=== PATIENT | female | born 1940 | race Caucasian/White ===

== ENCOUNTER 2024-10-11 14:35 | Observation (INO) | payer MEDICARE, BC, SELFPAY ==
[2024-10-11] VITALS (22 sets, daily range): BP systolic 120–153; BP diastolic 73–97; PULSE 65–93; RESP 10–26; TEMP 36.4–36.9; O2SAT 92–96; BMI 26.7; BMI 26.4; BMI 26.5
--- OUTSIDE RECORDS SUMMARY | 2024-10-11 14:51 | XMS_ITS | Clinical Summary ---
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 Provider zinc 50 mg tablet Take 1 Tablet (50 mg) by mouth once daily. zinc 50 mg tablet QIEUSER QIEUSER WARFARIN SODIUM 7.5 MG TABS Take by mouth 7.5 mg (7.5 mg x 1) every Mon, Fri; 3.75 mg (7.5 mg x 0.5) all other days in the evening OR as directed warfarin [id number] QIEUSER QIEUSER ROSUVASTATIN CALCIUM 20 MG TABS Take 1 Tablet (20 mg) by mouth at bedtime. rosuvastatin [id number] QIEUSER QIEUSER NORTRIPTYLINE HCL 10 MG CAPS Take 1 Capsule (10 mg) by mouth at bedtime. nortriptyline [id number] QIEUSER QIEUSER NITROGLYCERIN 0.[address] 1 Tablet (0.4 mg) under the tongue every 5 minutes if needed for Chest Pain. nitroglycerin [id number] QIEUSER QIEUSER [facility] [place] As directed. Automatic arm blood pressure cuff, diagnosis hypertension I[facility] [place] QIEUSER QIEUSER METOPROLOL SUCCINATE ER 50 MG [id number] Take 1 Tablet (50 mg) by mouth at bedtime. metoprolol succinate [id number] QIEUSER QIEUSER LORAZEPAM 0.5 MG TABS TAKE 1/2 TO 1 TABLET BY MOUTH NEEDED, NOT MEANT FOR REGULAR USE. lorazepam [id number] QIEUSER QIEUSER L.acid-L.casei-B.b if-B.violet-FOS (Probiotic Blend) 2 billion c Take by mouth. Probiotic Blend QIEUSER QIEUSER ESTRADIOL 0.1 MG/GM CREA Insert 1 g into the vagina once weekly. estradiol [id number] QIEUSER QIEUSER denosumab (PROLIA) injection 60 mg 60 mg Subcutaneous 11/07 PROLIA QIEUSER QIEUSER cholecalciferol (VITAMIN D3) 2,000 unit capsule Take 1 Capsule (2,000 units) by mouth once daily. VITAMIN D3 QIEUSER QIEUSER CALCIUM CARB-CHOLECALCIFER OL (CALCIUM CARB-CHOLECALCIFER OL) 600-10 MG-MCG TABS Take 1 Tablet by mouth in the morning and 1 Tablet in the evening. Take with meals. CALCIUM CARB-CHOLECALCI FEROL QIEUSER QIEUSER ASPIRIN LOW DOSE 81 MG TBEC Once daily aspirin [id number] QIEUSER QIEUSER ASCORBIC ACID 500 MG TABS Take 1 Tablet (500 mg) by mouth once daily. ascorbic acid (vitamin c) [id number] QIEUSER QIEUSER acetaminophen (TYLENOL) 500 mg capsule Take 1 capsule by mouth every 6 hours if needed. Max acetaminophen dose: 4000mg in 24 hrs. TYLENOL QIEUSER QIEUSER Medications Administered No information available. Allergies, Adverse Reactions, Alerts No information available. Results Date Name Value Unit Range Flag Description Office Visit: Office Visit f ax MEDS REVIEW Done Documenta tion of current medications (procedure) Plan of Care Type Date Detail Appointment 11:00 [place], [address] [place] [address] [employer], [address], [place], [address], Appointment 03:30 PM Aubree workman PA-C, Formerly named [facility], [address], [place], [address], Pending order Follow up ARYAN Pending order Follow up ARYAN Pending order MRI-Brain W/WO Pending order MRI-Brain W/WO Procedures Code Procedure Name Date Entry Date [id number] Documentation of current medicatio ns Vital Signs Date Name Value Unit Description Heart Rate 62 /min pulse rate Immunizations No information available. Advance Directives No information available.
--- OUTSIDE RECORDS SUMMARY | 2024-10-11 14:51 | XMS_ITS | Clinical Summary ---
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 Max acetaminophen dose: 4000mg in 24 hrs. 0 02/28/20 19 Active miscellaneous medical supply miscIndications:H TN (hypertension) As directed. Automatic arm blood pressure cuff, diagnosis hypertension I10 1 Units 12/11/19 20 Active zinc 50 mg tablet Take 1 Tablet (50 mg) by mouth once daily. 0 01/03/20 21 Active ascorbic acid, vitamin C, (Vitamin C) 500 mg tablet Take 1 Tablet (500 mg) by mouth once daily. 0 01/03/20 21 Active L.acid-L.casei-B. bif-B.violet-FOS (Probiotic Blend) 2 billion cell-50 mg cap Take by mouth. 0 01/03/20 21 Active cholecalciferol (VITAMIN D3) 2,000 unit capsuleIndication s:Vitamin D deficiency,Age related osteoporosis, unspecified pathological fracture presence Take 1 Capsule (2,000 units) by mouth once daily. 09/18/19 22 Active calcium carbonate-vitamin D3, 600 mg-400 unit, 600 mg-10 mcg (400 unit) tabletIndications :Vitamin D deficiency,Age related osteoporosis, unspecified pathological fracture presence Take 1 Tablet by mouth in the morning and 1 Tablet in the evening. Take with meals. 0 09/18/19 22 Active nitroglycerin (NITROSTAT) 0.4 mg sublingual tabletIndications :Coronary artery disease involving coronary bypass graft of [place] heart with angina pectoris Place 1 Tablet (0.4 mg) under the tongue every 5 minutes if needed for Chest Pain. 25 Tablet 6 08/09/19 24 Active LORazepam (ATIVAN) 0.5 mg tabIndications:An xiety TAKE 1/2 TO 1 TABLET BY MOUTH NEEDED, NOT MEANT FOR REGULAR USE. 15 Tablet 2 10/25/19 24 Active rosuvastatin (CRESTOR) 20 mg tabletIndications :Hyperlipidemia, unspecified hyperlipidemia type Take 1 Tablet (20 mg) by mouth at bedtime. 90 Tablet 3 05/01/19 25 Active metoprolol succinate (TOPROL XL) 50 mg sustained-release tabletIndications :Screening for hypertension,Prim grace hypertension Take 1 Tablet (50 mg) by mouth at bedtime. 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 90 Tablet 3 10/02/19 25 Active estradioL (ESTRACE) 0.01% (0.1 mg/g) vaginal creamIndications: Atrophic vaginitis Insert 1 g into the vagina every Tuesday and Tuesday. 42.5 g 10/06/19 25 Active estradioL (ESTRACE) 0.01% (0.1 mg/g) vaginal creamIndications: Atrophic vaginitis Insert 1 g into the vagina once weekly. 42.5 g 5 05/01/19 25 025 Discontin ued(*Medi cation adjustmen t) mirtazapine 7.5 mg tabletIndications :Anxiety Take 0.5 Tablets (3.75 mg) by mouth at bedtime. 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 subendocardial scar compromising 50 to 75% of the myocardial wall thickness in the apical anterior, septal, and apical inferior segments, as well as the true apex (with total scar burden of 12%), yet her overall left ventricular ejection fraction was preserved at 64% Gilbert's syndrome 12/28/2011 Overview (12/28/2011): Bilirubin usually 1.6-1.7 Uterine prolapse 10/27/2011 Colon polyp 05/04/2011 Overview (05/04/2011): Colonoscopy 04/2011 polyp repeat in 5 years Vitamin D deficiency 02/03/2009 Cystocele, midline 01/30/2008 HTN (hypertension) 01/18/2007 Unspecified osteoporosis 01/18/2007 Overview (09/15/2017): Borderline osteoporosis, 2008, stable to improved 02/2011. Started fosamax 2012. Osteoporosis stable 08/2017, recheck 3 years. ASCVD (arteriosclerotic cardiovascular disease) 01/18/2007 Overview (06/09/2016): Acute KY and 4v coronary artery bypass graft surgery in 1998. She underwent percutaneous coronary intervention to the left anterior descending coronary artery due to chest pain while traveling in [place], [place] in 2003. Her last angiogram was in 01/2012 for evaluation of chest pain. At that time her KIMBLE to the LAD was noted to be atretic and her 3 vein grafts were occluded. Resolved Problems Problem Noted Date Diagnosed Date Resolved Date Ascending aorta dilatation 08/01/2018 0 04/22/2023 Overview (10/08/2018): 4cm on echocardiogram 07/2018. Recheck 6-12 months initially then annually if stable. May space out further if remains stable per cardiology. 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 Unstable angina 02/09/2012 02/26/2014 Paresthesia 02/16/2010 05/28/2014 Encounters Date Type Department Care Team Description 10/11/2024 Nurse Triage [facility] [address] [place] [address] Lucero Murphy MD Confusion 10/04/2024 2:40 PM CDT Office Visit [facility] [address] [place] [phone] Enedina Arcos MD Consult (Postmenopausal bleeding/follow up ultrasound) 10/04/2024 Travel 09/26/2024 Anticoagulation (warfarin) [facility] [address] [place] [address] Nurse, [facility] Anticogwendolyn Anticoagulation 09/25/2024 Travel 09/12/2024 Anticoagulation (warfarin) [facility] [address] [facility] [address] Nurse, [facility] Anticoag Anticoagulation 09/11/2024 11:20 AM CDT Office Visit [facility] [address] [facility] [address] Lucero Murphy MD Follow Up (Pessary reinserted 08/23/24. St[address] in [address]. No bleeding/Fall on 08/27/24, no broken bones. Bruising has faded.); ER Follow up (09/08/24 Seen for mild pressure and lasted only a fleeting second or 2 before resolving./EKG done. Discharged home. Has not had any episodes since./Spots on x-ray. Jacqueline does have sensation around left nipple.); Pre-Op Exam (Cataract surgery 09/17 and 09/[address] [place] [address] [place] Olmos); Medication Management (Mirtazapine dose? Tired/I&R was 3.1) 09/11/2024 Telephone [facility] [address] [place] [address] Lucero Murphy MD Elevated Inr 09/11/2024 Travel 09/08/2024 6:28 AM CDT - 09/08/2024 10:46 AM CDT Emergency [facility] [address] [place] [address] Farzad Farias MD Sensation of chest pressure (Primary Dx) Discharge Disposition: Home Self Care 09/08/2024 Travel 09/03/2024 10:55 AM CDT Ancillary Procedure [facility] [address] [place] [address] 09/03/2024 10:15 AM CDT Office Visit [facility] [address] [place] [phone] Ajay Kam PA Back Injury 09/03/2024 Travel 08/27/2024 Anticoagulation (warfarin) [facility] [address] [place] [address] 1, [facility] Anticoagulation 08/24/2024 8:30 AM CDT Orders Only [facility] [address] [place] [address] Lab, [facility] 08/23/2024 3:30 PM CDT Office Visit [facility] [address] [place] [address] Lucero Murphy MD Follow Up (UTI/Pessary maintenance ) 08/23/2024 1:45 PM CDT Ancillary Procedure [facility] [address] [place] [address] 08/23/2024 Travel 08/20/2024 Anticoagulation (warfarin) [facility] [address] [place] [address] 1, [facility] Anticoagulation (Chart update) 08/17/2024 10:15 AM CDT Orders Only [facility] [address] [place] [address] Lab, [facility] 08/17/2024 Telephone [facility] [address] [place] [address] Lucero Murphy MD Results 08/16/2024 Telephone [facility] [address] [place] [address] Lucero Murphy MD Spotting 08/14/2024 1:00 PM CDT Office Visit [facility] [address] [facility] [place] [address] Nathan Ozuna MD Follow Up (Sudden hearing loss) 08/14/2024 Travel 08/08/2024 2:30 PM CDT Office Visit 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 artery ); Concerns (Dizziness once in a while , shortness of breath with exertion, pt denies chest discomfort, and palpitations at this time ) 08/08/2024 11:30 AM CDT Orders Only [facility] [address] [place] [address] Lab, [facility] 08/08/2024 Anticoagulation (warfarin) [facility] [address] [place] [address] 1, [facility] Anticoagulation 08/07/2024 Travel 07/27/2024 1:00 PM CDT Office Visit [facility] [address] [place] [address] Lucero Murphy MD Follow Up (For the last week or so she has noticed vaginal bleeding and discharge. At first she thought it was feces. Daughter states, She is not having any pain or irritation or pain with urination. The amount of blood is about a couple inches long and 1/2 inch wide. It is in her underwear and on her pad not just when she wipes.) 07/26/2024 Travel 07/26/2024 Telephone [facility] [address] [place] [address] Lucero Murphy MD Questions (mychart message) 07/19/2024 8:45 AM CDT Orders Only [facility] [address] [place] [address] Lab, [facility] 07/19/2024 Anticoagulation (warfarin) [facility] [address] [place] [address] 1, [facility]tico[facility]; Refill Request (Warfarin) 07/19/2024 Travel from Last 3 Months Immunizations Immunization Administration Dates Next Due AMB INFLUENZA IIV3 (AGE 65+ YRS) PF (Flu Clinic Only) 01/12/2018,12/31/2016 AMB Influenza, IIV3 (Age >=3 years)(Flu Clinic Only) 01/15/2010 Amb Influenza, Inact (High-d ose) (Flu Clinic Only) 01/06/2016,01/09/2015,01/09/2014 COVID-19 vaccine (Moderna 100mcg/0.5mL) PF, MDV 06/27/2020,05/30/2020 Influenza A (H1N1), Inactivated 03/03/2009 Influenza A (H1N1), Inactiva isaiah (Age >=3 Years) 03/03/2009 Influenza, High-dose Inactivated 01/23/2024,12/19,01/09/2014 Influenza, IIV3 (Age 6-35 mos) 01/08/2011,2008 Influenza, IIV3 (Age >=3 years) 01/03/20 13,02/16/2012,01/08/2011,01/15,02/28/2009,01/30/2008,01/18/2007 ,02/16/2006,12/25/2004,01/02/2004,01/19 Influenza, Inactivated AIIV4 (Age 65+ Years) Preserv Free 12/21/2022,01/15/2022,01/27/2021,12/10 Influenza, Inactivated IIV3 (Age 65+ Years) Preserv Free 12/29/2018 Pneumococcal Poly,23-Valent (Pneumovax) 10/20/2004 Pneumococcal conj 13-Valent (Prevnar 13) 02/11/2015 RSV, Recombinant ADJ Reconst ituted (Arexvy 120MCG/0.5mL) 12/30/2022 Td (Age >=7 Years) 10/20/2004 Td, Preservative Free (age >= 7 Years) 5 Tdap 10/26/2011 Zoster (Shingrix-RZV, recombinant) 01/25/2018, Zoster (Zostavax-ZVL, live) 02/03/2009 Family History Medical History Relation Name Comments Heart Disease Brother 1 Heart Disease Brother 2 Heart Disease Brother 3 Heart Disease Brother 4 Heart Disease Father Other Mother cancer Heart Disease Sister 1 had CABG, age 92 Heart Disease Sister 2 ballooning of heart Parkinsonism Sister 3 Cancer-breast No Family History Relation Name Status Comments Brother 1 Brother 2 Brother 3 Alive Brother 4 Alive Father Mother Sister 1 Sister 2 Alive Sister 3 Social History Tobacco Use Types Packs/Day Years Used Date Smoking Tobacco: Never Smokeless Tobacco: Never Tobacco Cessation:Counseling Given: No Alcohol Use Standard Drinks/Week Comments Yes 1 (1 standard drink = 0.6 oz pur e alcohol) wine on special occasions PHQ-2 Answer Date Recorded PHQ-2 TOTAL SCORE 0 10/04/2024 Social Connections Answer Date Recorded Do you often feel lonely or isolated from those around you? 0 05/01/2024 Financial Resource Strain Answer Date R ecorded Difficulty of Paying Living Expenses 3 05/01/2024 Difficulty of Paying Living Expenses Not on file 05/01/2024 Food Insecurity Answer Date Recorded Do you worry your food will run out before you are able to buy more? 1 05/01/2024 Transportation Needs Answer Date Record ed Does lack of transportation keep you from medica l appointments? 1 05/01/2024 Does lack of transportation keep you from work, meetings or getting things that you need? 1 05/01/2024 Housing Stability Answer Date Recorded What is your housing situation today? 1 05/01/2024 Interpersonal Safety Answer Date Record ed Are you being hit, kicked, p ushed or yelled at (see row info)? No 09/08/2024 Interpersonal Safety Abuse 12 - 18 Not on file 09/08/2024 Interpersonal Safety Ambulatory Vulnerability No t on file 09/08/2024 Utilities Answer Date Recorded Do you have trouble paying f or utilities (for example, heat, electricity, water, phone)? 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 Gender Identity Not on file Sexual Orientation Not on file Obstetrics History Para Term AB IAB SAB Ectopic Multiple Livin g Live Births 3 3 3 0 0 0 0 0 0 3 3 Date Outcome GA Total Labor Labor/2nd/3rd Weight Sex Type Anes PTL Federica A1 A5 Name Clin Term Living Term Living Term Living Last Filed Vital Signs Vital Sign Reading Time Taken Comments Blood Pressure 124/72 10/04/2024 2:36 PM CDT Pulse 78 10/04/2024 2:36 PM CDT Temperature 36.4 C (97.6 F) 09/08/2024 6:31 AM CDT Respiratory Rate 19 09/08/2024 10:0 0 AM CDT Oxygen Saturation 96% 09/11/2024 11: 42 AM CDT Inhaled Oxygen Concentration - - Weight 60.2 kg (132 lb 12.8 oz) 10/04/2024 2:36 PM CDT Height 149.9 cm (4' 11) 09/08/2024 6:31 AM CDT Body Mass Index 26.82 09/08/2024 6:31 AM CDT Plan of Treatment Upcoming Encounters Date Type Department Care Team (Late st Contact Info) Description 10/23/2024 3:15 PM CDT Orders Only [facility] [address] [place] [address] [place] 12/24/2024 10:30 AM CDT Office Visit [facility] [address] [place] [address] Romana Starks, AuD [address] [place] [address] Health Maintenance Due Date Last Done Comments Tetanus booster 10/25/2021 10/26/2011, 04/2004, 10/20/2004 COVID-19 vaccine series ( season) 2024 01/23/2024, 07/11/2023, 12/30/2022, Additional history exists Medicare Wellness for age 65+ 08/09/2024 08/09/2023, 07/20/2022, 07/16/2021, Additional history exists Influenza Vaccine (#1) 2024 , 12/21/2022, 01/15/2022, Additional history exists BMI (ht and wt on same day) for age 18+ 08/08/2025 08/08/2024, 08/09/2023, 07/01/2023, Additional history exists Depression screening for age 12+ 10/04/2025 10/04/2024, 08/09/2023, 07/20/2022, Additional history exists Pneumococcal series for age 50+ Completed 02/11/2015, 10/20/2004 Zoster (shingles) series for age 50+ Completed 01/25/2018, 10/08/2017, 02/03/2009 RSV vaccine for adults or Completed 12/30/2022 DEXA/DXA scan for age 65+ Completed 2023, 07/23/2021, 09/13/2017, Additional history exists Hepatitis B series for 19+ Aged Out N o longer eligible based on patient's age to complete this topic Procedures Procedure Name Priority Date/Time Associated Diagnosis Comments INR,POCT Routine 09/25/2024 1:31 PM CDT 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 [place] Anticoagulation monitoring, INR range 2-3 PROTIME-INR Routine 09/11/2024 12:59 PM CDT 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 [place] Anticoagulation monitoring, INR range 2-3 CBC WITH AUTO DIFFERENTIAL Routine 09/11/2024 12:59 PM CDT Primary hypertension BASIC METABOLIC PANEL Routine 09/11/2024 12:59 PM CDT Primary hypertension LIPID PANEL W REFLEX MEASURED LDL Routine 09/11/2024 12:59 PM CDT Hyperlipidemia, unspecified hyperlipidemia type TROPONIN T (HS) ONE TIME Timed 09/08/2024 9:16 AM CDT XR CHEST 2 VIEWS PA AND LATERAL STAT 09/08/2024 7:21 AM CDT CBC WITH AUTO DIFFERENTIAL STAT 09/08/2024 7:02 AM CDT PROTIME-INR STAT 09/08/2024 7:02 AM CDT TROPONIN T (HS) ACUTE W/2HR REFLEX STAT 09/08/2024 7:02 AM CDT MAGNESIUM STAT 09/08/2024 7:02 AM CDT CBC WITH AUTO DIFFERENTIAL STAT 09/08/2024 7:02 AM CDT BASIC METABOLIC PANEL STAT 09/08/2024 7:02 AM CDT EKG 12 LEAD STAT 09/08/2024 6:39 AM CDT XR RIBS RIGHT AND PA CHEST MINIMUM 3 VIEWS STAT 09/03/2024 10:58 AM CDT Rib pain on right side INR,POCT Routine 08/24/2024 8:23 AM CDT 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 [place] Anticoagulation monitoring, INR range 2-3 US PELVIS COMPLETE TA AND TV Routine 08/23/2024 2:53 PM CDT Postmenopausal bleeding UA W/ SEDIMENT EXAM REFLEXED PER CRITERIA STAT 08/17/2024 12:19 PM CDT Cystocele, midline URINE CULTURE Routine 08/17/2024 10:18 AM CDT Dysuria INR,POCT Routine 08/08/2024 11:44 AM CDT 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 [place] Anticoagulation monitoring, INR range 2-3 TRICHOMONAS, DEANGELO, AND BACTERIAL VAGINOSIS BY MARTIN Routine 07/27/2024 3:05 PM CDT Vaginal discharge PATH TISSUE EXAM Routine 07/27/2024 2:15 PM CDT Vaginal spotting INR,POCT Routine 07/19/2024 8:54 AM CDT 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 INR 2.2(H) ratio [facility] Comment: INRs >2.9 may be falsely elevated in patients receiving either unfractionated Heparin or Low Molecular Weight Heparin. Follow up testing in a hospital laboratory may be helpful if clinically indicated. INR results of > or = 5.0 should be verified using the standard venipuncture procedure. Reference Range 0.9-1.1 Moderate-intensity Warfarin Therapy 2.0-3.0 Higher-intensity Warfarin Therapy 3.0-4.0 PROTHROMBIN TIMEP 26.8(H) 10.5 - 13.[address] [facility] Comment: Point of care fingerstick Prothrombin Time/INR results may vary from venous Prothrombin Time/INR methodologies. Any results exhibiting inconsistency with the patient's clinical status should be repeated using a venous Prothrombin Time/INR method. Blood BLOOD SPECIMEN / Unknown 09/25/2024 1:31 PM CDT 09/25/2024 1:32 PM CDT us Lucero Murphy MD LABORATORY Final Result [facility] [address] [place] [address], [facility] [address] [place] [address] * LIPID PANEL W REFLEX MEASURED LDL (09/11/2024 12:59 PM CDT) CHOLESTEROL, TOTAL 139 <200 mg/dL [facility] HDL CHOLESTEROL 51 > OR = 50 mg/dL [facility] TRIGLYCERIDES 114 <150 mg/dL [facility] LDL-CHOLESTEROL 68 mg/dL (calc) [facility] Comment: Reference range: <100 Desirable range <100 mg/dL for primary prevention; <70 mg/dL for patients with CHD or diabetic patients with > or = 2 CHD risk factors. LDL-C is now calculated using the Jose Angel-Olvera calculation, which is a validated novel method providing better accuracy than the Friedewald equation in the estimation of LDL-C. Jose Angel SS et al. JAYJAY. 2013;310(19): 7712-3418 (http://education.Habet/faq/ODX328) CHOL/HDLC RATIO 2.7 <5.0 (calc) [facility] NON HDL CHOLESTEROL 88 <130 mg/dL (calc) [facility] Comment: For patients with diabetes plus 1 major ASCVD risk factor, treating to a non-HDL-C goal of <100 mg/dL (LDL-C of <70 mg/dL) is considered a therapeutic option. Blood BLOOD SPECIMEN / Unknown 09/11/2024 12:59 PM CDT 09/11/2024 1:00 PM CDT Lucero Murphy MD CHEMISTRY Final Result [facility] [address] [address], [employer] [address] * (ABNORMAL) PROTIME-INR [[id number]] - Standing Order (09/11/2024 12:59 PM CDT) Only the most recent of2 resultswithin the time period is included. INR 3.6(H) <1.3 09/11/2024 10:28 PM CDT [facility] PROTIME 41.8(H) 10.6 - 12.4 sec 09/11/2024 10:28 PM CDT [facility] Blood BLOOD SPECIMEN / Unknown [facility] / Unknown 09/11/2024 12:59 PM CDT 09/11/2024 12:59 PM CDT Narrative [facility] - 09/11/2024 10:28 PM CDT Therapeutic Range 2.0-3.0 for most anticoagulated patients 2.5-3.5 or 4.0 for high risk patients The INR is only used for patients on stable oral anticoagulant therapy. It makes no significant contribution to the diagnosis or treatment of patients whose Protime is prolonged for other reasons. INR results are increased when heparin levels exceed 1.0 U/mL, which corresponds to an aPTT >125 seconds if the patient is on UFH. Lucero Murphy MD HEMATOLOGY Final Result [facility] [address] [place] [address], * CBC AND DIFFERENTIAL (09/11/2024 12:59 PM CDT) [facility] WHITE BLOOD CELL COUNT 7.8 3.8 - 10.8 Thousand/u L [facility] RED BLOOD CELL COUNT 4.59 3.80 - 5.10 Million/uL [facility] HEMOGLOBIN 13.9 11.7 - 15.5 g/dL [facility] HEMATOCRIT 42.8 35.0 - 45.0 % [facility] MCV 93.2 80.0 - 100.0 fL [facility] MCH 30.3 27.0 - 33.0 pg [facility] MCHC 32.5 32.0 - 36.0 g/dL [facility] Comment: For adults, a slight decrease in the calculated MCHC value (in the range of 30 to 32 g/dL) is most likely not clinically significant; however, it should be interpreted with caution in correlation with other red cell parameters and the patient's clinical condition. RDW 13.4 11.0 - 15.0 % [facility] PLATELET COUNT 176 140 - 400 Thousand/u L [facility] MPV 10.6 7.5 - 12.5 fL [facility] ABSOLUTE NEUTROPHILS 5,788 1,500 - 7,800 cells/uL [facility] ABSOLUTE LYMPHOCYTES 1,295 850 - 3,900 cells/uL [facility] ABSOLUTE MONOCYTES 616 200 - 950 cells/uL [facility] ABSOLUTE EOSINOPHILS 78 15 - 500 cells/uL [facility] ABSOLUTE BASOPHILS 23 0 - 200 cells/uL [facility] NEUTROPHILS 74.2 % [facility] LYMPHOCYTES 16.6 % [facility] MONOCYTES 7.9 % [facility] EOSINOPHILS 1.0 % [facility] BASOPHILS 0.3 % [facility] Blood BLOOD SPECIMEN / Unknown 09/11/2024 12:59 PM CDT 09/11/2024 1:00 PM CDT us Lucero Murphy MD HEMATOLOGY Final Result [facility] [address] [place] [address], [facility] [address] [place] [address] * (ABNORMAL) BASIC METABOLIC PANEL (09/11/2024 12:59 PM CDT) Only the most recent of2 resultswithin the time period is included. [facility] GLUCOSE 94 65 - 99 mg/dL [facility] Comment: Fasting reference interval UREA NITROGEN (BUN) 18 7 - 25 mg/dL [facility] CREATININE 1.03(H) 0.60 - 0.95 mg/dL [facility] EGFR 53(L) > OR = 60 mL/min/1.7 3m2 [facility] BUN/CREATININE RATIO 17 6 - 22 (calc) [facility] SODIUM 143 135 - 146 mmol/L [facility] POTASSIUM 4.6 3.5 - 5.3 mmol/L [facility] CHLORIDE 105 98 - 110 mmol/L [facility] CARBON DIOXIDE 29 20 - 32 mmol/L [facility] ELECTROLYTE BALANCE 9 7 - 17 mmol/L (calc) [facility] CALCIUM 9.9 8.6 - 10.4 mg/dL [facility] Blood BLOOD SPECIMEN / Unknown 09/11/2024 12:59 PM CDT 09/11/2024 1:00 PM CDT Lucero Murphy MD CHEMISTRY Final Result Performing Organization Address City/[facility]/ZIP Co de Phone Number [facility] [address] [place] [address], [place] [phone] [facility] [address] [place] [address] * TROPONIN T (HS) ONE TIME (09/08/2024 9:16 AM CDT) TROPONIN T HS <6 6-10 ng/L ng/L 09/08/2024 9:54 AM CDT [facility] Blood BLOOD SPECIMEN / Unknown Line/Port / Unknown 09/08/2024 9:16 AM CDT 09/08/2024 9:27 AM CDT Farzad Farias MD CHEMISTRY Final R esult Performing Organization Address City/[facility] Co de Phone Number [address] [address] * XR CHEST 2 VIEWS PA AND LATERAL (09/08/2024 7:21 AM CDT) Anatomical Region Laterality Modality CHEST, THORAX, Lung, HEART Digit al Radiography 09/08/2024 7:24 AM CDT Impressions 09/08/2024 7:24 AM CDT Negative chest. Dictated by Dane Guzman MD @ 09/08/2024 7:24:47 AM (Electronically Signed) Narrative 09/08/2024 7:24 AM CDT For Patients: As a result of the Century Cures Act, medical imaging exams and procedure reports are released immediately into your electronic medical record. You may view this report before your referring provider. If you have questions, please contact your health care provider. INDICATION: Chest pain. TECHNIQUE: Chest 2 views. COMPARISON: September 03, 2024. FINDINGS: Cardiovascular and mediastinum: Heart size is normal. Unremarkable mediastinum. Lungs and pleural spaces: Lungs are clear. No sign of infiltrate or mass. No sign of pleural effusion. No pneumothorax. Bones and soft tissues: No significant findings. Procedure Note Dane Guzman MD - 09/08/2024 For Patients: As a result of the Cures Act, medical imagingexams and procedure reports are released immediately into your electronicmedical record. You may view this report before your referring provider.If you have questions, please contact your health care provider. INDICATION: Chest pain. TECHNIQUE: Chest 2 views. COMPARISON: September 03, 2024. FINDINGS: Cardiovascular and mediastinum: Heart size is normal. Unremarkablemediastinum. Lungs and pleural spaces: Lungs are clear. No sign of infiltrate ormass. No sign of pleural effusion. No pneumothorax. Bones and soft tissues: No significant findings. IMPRESSION: Negative chest. Dictated by Dane Guzman MD @ 09/08/2024 7:24:47 AM (Electronically Signed) Farzad Farias MD GENERAL IMAGING Final R esult * TROPONIN T (HS) ACUTE W/2HR REFLEX (09/08/2024 7:02 AM CDT) TROPONIN T HS <6 6-10 ng/L ng/L 09/08/2024 7:36 AM CDT [facility] Blood BLOOD SPECIMEN / Unknown IV Start / Unknown 09/08/2024 7:02 AM CDT 09/08/2024 7:06 AM CDT Narrative [facility] - 09/08/2024 7:36 AM CDT hs-cTnT (Elecsys Troponin T Gen 5) concentration (s) above the sex-specific 99th percentile (16 ng/L or greater for males or 11 ng/L or greater for females) are indicative of myocardial injury. If initial hs-cTnT <=100 ng/L at presentation, a 0h/2h ABSOLUTE (ng/L) delta change (rising or falling) of >=10 ng/L suggests a significant change, whereas a 0h/2h delta change <=3 ng/L suggests no significant change. If initial hs-cTnT >100 ng/L at presentation, a 0h/2h/ RELATIVE (percent, %) delta change of 20% is suggested to distinguish patients with acute vs. chronic myocardial injury. There are multiple etiologies that can cause hs-cTnT increases above the 99th percentile (myocardial injury) other than acute myocardial infarction. Clinical context and careful clinical evaluation are critical for diagnosis and risk-stratification. The diagnosis of acute myocardial infarction requires a rising and/or falling pattern in hs-cTnT concentrations with at least one value above the sex-specific 99th percentile PLUS at least one of the following clinical criteria: ischemic symptoms, new or presumed new significant ST-T wave changes or new LBBB, development of pathological Q waves, imaging evidence of new loss of viable myocardium or new regional wall motion abnormality, or identification of intracoronary atherothrombosis or an acute angiographic culprit on coronary angiography. In appropriate low-risk patients with a non-ischemic electrocardiogram without active chest pain with a symptom onset >3-hours without recurrence, a single initial hs-cTnT<6 ng/L identifies patient with a very low risk in emergency department patient population. Farzad Farias MD CHEMISTRY Final R esult [place] [id number] * CBC WITH AUTO DIFFERENTIAL (09/08/2024 7:02 AM CDT) WHITE BLOOD COUNT 6.3 4.5 - 11.0 thou/cu mm 09/08/2024 7:10 AM CDT [facility] RED BLOOD COUNT 4.60 4.00 - 5.20 mil/cu mm 09/08/2024 7:10 AM CDT [facility] HEMOGLOBIN 13.8 12.0 - 16.0 g/dL 09/08/2024 7:10 AM CDT [facility] HEMATOCRIT 41.9 33.0 - 51.0 % 09/08/2024 7:10 AM CDT [facility] MCV 91 80 - 100 fL 09/08/2024 7:10 AM CDT [facility] MCH 30.0 26.0 - 34.0 pg 09/08/2024 7:10 AM CDT [facility] MCHC 32.9 32.0 - 36.0 g/dL 09/08/2024 7:10 AM CDT [facility] RDW 13.2 11.5 - 15.5 % 09/08/2024 7:10 AM CDT [facility] PLATELET COUNT 155 140 - 440 thou/cu mm 09/08/2024 7:10 AM CDT [facility] MPV 10.1 6.5 - 11.0 fL 09/08/2024 7:10 AM CDT [facility] NRBC 0.0 % 09/08/2024 7:10 AM CDT [facility] ABS NRBC 0.0 thou /cu mm 09/08/2024 7:10 AM CDT [facility] % NEUT 70.0 % 09/08/2024 7:10 AM CDT [facility] % LYMPH 18.7 % 09/08/2024 7:10 AM CDT [facility] % MONO 9.0 % 09/08/2024 7:10 AM T [facility] % EOS 1.6 % 09/08/2024 7:10 AM CDT [facility] % BASO 0.5 % 09/08/2024 7:10 AM CDT [facility] % IMMATURE GRAN (METAS,MYELOS,CO OS) 0.2 % 09/08/2024 7:10 AM CDT [facility] ABSOLUTE NEUTROPHILS 4.4 1.7 - 7.0 thou/cu mm 09/08/2024 7:10 AM CDT [facility] ABSOLUTE LYMPHOCYTES 1.2 0.9 - 2.9 thou/cu mm 09/08/2024 7:10 AM CDT [facility] ABSOLUTE MONOCYTES 0.6 <0.9 thou/cu mm 09/08/2024 7:10 AM CDT [facility] ABSOLUTE EOSINOPHILS 0.1 <0.5 thou/cu mm 09/08/2024 7:10 AM CDT [facility] ABSOLUTE BASOPHILS 0.0 <0.3 thou/cu mm 09/08/2024 7:10 AM [facility] ABSOLUTE IMMATURE GRANULOCYTES(MET ,MYELOS,PROS) 0.0 <0.3 thou/cu mm 09/08/2024 7:10 AM [facility] Blood BLOOD SPECIMEN / Unknown IV Start / Unknown 09/08/2024 7:02 AM CDT 09/08/2024 7:06 AM CDT Farzad Farias MD HEMATOLOGY Final R esult Performing Organization Address [facility] de Phone Number [address] [address] * MAGNESIUM (09/08/2024 7:02 AM CDT) Pathologist [facility] MAGNESIUM 1.9 1.6 - 2.4 mg/dL 09/08/2024 7:36 AM CDT [facility] Blood BLOOD SPECIMEN / Unknown IV Start / Unknown 09/08/2024 7:02 AM CDT 09/08/2024 7:06 AM CDT Farzad Farias MD CHEMISTRY Final R esult Performing Organization Address [facility] de Phone Number [address] [address] * EKG 12 LEAD (09/08/2024 6:39 AM CDT) Pathologist [facility] Interpretation Normal sinus rhythm Low voltage QRS T wave abnormality, consider lateral ischemia Abnormal ECG BEYOND NOW Ventricular Rate 73 BPM BEYOND NOW Atrial Rate 73 BPM BEYOND NOW P-R Interval 146 ms BEYOND NOW QRS Duration 78 ms BEYOND NOW QT 388 ms BEYOND NOW QTc 427 ms BEYOND NOW P Hamel 70 degrees BEYOND NOW R Hamel 27 degrees BEYOND NOW T Hamel 69 degrees BEYOND NOW 09/08/2024 6:39 AM CDT 09/10/2024 1:42 PM CDT [facility] Ed Triage EKG ORD Final Result Performing Organization Address [facility] Co de Phone Number [facility]YOND NOW [place], [place] * XR RIBS RIGHT AND PA CHEST MINIMUM 3 VIEWS (09/03/2024 10:58 AM CDT) Anatomical Region Laterality Modality RIBS, RIBS R, CHEST Digital Radi ography 09/03/2024 10:5 8 AM CDT Impressions 09/03/2024 11:00 AM CDT The visualized heart and lungs are negative. No rib fractures. Sternotomy. Narrative 09/03/2024 11:00 AM CDT For Patients: As a result of the Cures Act, medical imaging exams and procedure reports are released immediately into your electronic medical record. You may view this report before your referring provider. If you have questions, please contact your health care provider. EXAM: XR RIBS RIGHT AND PA CHEST MINIMUM 3 VIEWS LOCATION: [facility] DATE: 09/03/2024 INDICATION: Rib Pain On Right Side COMPARISON: None. Procedure Note Marcos Lundberg MD - 09/03/2024 For Patients: As a result of the Cures Act, medical imagingexams and procedure reports are released immediately into your electronicmedical record. You may view this report before your referring provider.If you have questions, please contact your health care provider. EXAM: XR RIBS RIGHT AND PA CHEST MINIMUM 3 VIEWS LOCATION: [facility] DATE: 09/03/2024 INDICATION: Rib Pain On Right Side COMPARISON: None. IMPRESSION: The visualized heart and lungs are negative. No rib fractures.Sternotomy. us Ajay [facility] GENER[facility] IMAG[facility] Final R esult * US PELVIS COMPLETE TA AND TV (08/23/2024 2:53 PM CDT) Anatomical Region Laterality Modality Pelvis Ultrasound 08/27/2024 1:18 PM CDT Impressions 08/27/2024 1:18 PM CDT No normal-appearing left ovary is identified. Persistent anechoic unilocular left adnexal cyst which is likely ovarian in nature, measuring 5.8 x 4.3 x 6.3 cm (96 mL) compared to 5.1 x 4.7 x 6.8 cm (95 mL). Follow-up is recommended in about 12 months, specifically 2 years from the 06/08/2023 exam to assess if this finding is slowly growing per 2019 SRU management guidelines (reference below). If still stable then no further imaging will be needed unless clinically indicated. RECOMMENDATION: FOLLOW-UP IN MAY OF 2025 TO COMPARE WITH THE 06/08/2023 EXAM. (Reference: https://pubs.rsna.org/doi/full/10.1148/radiol.1683341257) Dictated by Ron Lopez MD @ 08/27/2024 1:18:48 PM (Electronically Signed) Narrative 08/27/2024 1:18 PM CDT For Patients: As a result of the Cures Act, medical imaging exams and procedure reports are released immediately into your electronic medical record. You may view this report before your referring provider. If you have questions, please contact your health care provider. INDICATION: Postmenopausal bleeding. COMPARISON: 06/08/2023 TECHNIQUE: Transabdominal and endovaginal grayscale and spectral Doppler (duplex), which includes both color Doppler and riddle-scale images, pelvic ultrasound. FINDINGS: LMP: The patient is postmenopausal. Uterus: Measures 2.8 x 2.2 x 5.5cm. Unremarkable cervix. Please note that US is insensitive for detection of epithelial lesions of the cervix, compared to physical examination. Endometrial stripe: Measures 3mm. Uniform in thickness. Right Ovary: Measures 1.6 x 0.8 x 2cm and 1mL. Morphologically normal. Spectral Doppler demonstrates normal venous waveforms. Left Ovary: No normal-appearing left ovary is identified. Persistent anechoic unilocular left adnexal cyst which is likely ovarian in nature, measuring 5.8 x 4.3 x 6.3 cm (96 mL) compared to 5.1 x 4.7 x 6.8 cm (95 mL). Follow-up is recommended in about 12 months, specifically 2 years from the 06/08/2023 exam to assess if this finding is slowly growing per 2019 SRU management guidelines (reference below). If still stable then no further imaging will be needed unless clinically indicated. (Reference: https://pubs.rsna.org/doi/full/10.1148/radiol.7676552866) Pelvic fluid: No significant pelvic ascites. Procedure Note Ron Lopez MD - 08/27/2024 For Patients: As a result of the Cures Act, medical imagingexams and procedure reports are released immediately into your electronicmedical record. You may view this report before your referring provider.If you have questions, please contact your health care provider. INDICATION: Postmenopausal bleeding. COMPARISON: 06/08/2023 TECHNIQUE: Transabdominal and endovaginal grayscale and spectral Doppler (duplex),which includes both color Doppler and riddle-scale images, pelvicultrasound. FINDINGS: LMP: The patient is postmenopausal. Uterus: Measures 2.8 x 2.2 x 5.5cm. Unremarkable cervix. Please note thatUS is insensitive for detection of epithelial lesions of the cervix,compared to physical examination. Endometrial stripe: Measures 3mm. Uniform in thickness. Right Ovary: Measures 1.6 x 0.8 x 2cm and 1mL. Morphologically normal.Spectral Doppler demonstrates normal venous waveforms. Left Ovary: No normal-appearing left ovary is identified. Persistentanechoic unilocular left adnexal cyst which is likely ovarian in nature,measuring 5.8 x 4.3 x 6.3 cm (96 mL) compared to 5.1 x 4.7 x 6.8 cm (95mL). Follow-up is recommended in about 12 months, specifically 2 yearsfrom the 06/08/2023 exam to assess if this finding is slowly growing [id number] SRU management guidelines (reference below). If still stable then nofurther imaging will be needed unless clinically indicated. (Reference: https://pubs.rsna.org/doi/full/10.1148/radiol.8252710266) Pelvic fluid: No significant pelvic ascites. IMPRESSION: No normal-appearing left ovary is identified. Persistent anechoicunilocular left adnexal cyst which is likely ovarian in nature, measuring5.8 x 4.3 x 6.3 cm (96 mL) compared to 5.1 x 4.7 x 6.8 cm (95 mL).Follow-up is recommended in about 12 months, specifically 2 years from the06/08/2023 exam to assess if this finding is slowly growing per 2019 SRUmanagement guidelines (reference below). If still stable then no furtherimaging will be needed unless clinically indicated. RECOMMENDATION: FOLLOW-UP IN MAY OF 2025 TO COMPARE WITH THE 06/08/2023EXAM. (Reference: https://pubs.rsna.org/doi/full/10.1148/radiol.7747645411) Dictated by Ron Lopez MD @ 08/27/2024 1:18:48 PM (Electronically Signed) us Lucero Murphy MD US Final Result * (ABNORMAL) STAT Urinalysis w/ reflex to Microscopic (08/17/2024 12:19 PM CDT) COLOR YELLOW YELLOW [facility] APPEARANCE TURBID(A) CLEAR [facility] SPECIFIC GRAVITY 1.015 1.001 - 1.035 [facility] PH 5.5 5.0 - 8.0 [facility] GLUCOSE NEGATIVE NEGATIVE [facility] BILIRUBIN NEGATIVE NEGATIVE [facility] KETONES NEGATIVE NEGATIVE [facility] OCCULT BLOOD 1+(A) NEGATIVE [facility] PROTEIN NEGATIVE NEGATIVE [facility] NITRITE POSITIVE(A) NEGATIVE [facility] LEUKOCYTE ESTERASE 2+(A) NEGATIVE [facility] WBC UA PACKED(A) < OR = 5 /HPF [facility] RBC UA 3-10(A) < OR = 2 /HPF [facility] SQUAMOUS EPITHELIAL CELLS UA 10-20(A) < OR = 5 /HPF [facility] BACTERIA UA MANY(A) NONE SEEN /HPF [facility] NOTE UA [facility] Comment: This urine was analyzed for the presence of WBC, RBC, bacteria, casts, and other formed elements. Only those elements seen were reported. Urine URINE SPECIMEN / Unknown 08/17/2024 12:19 PM CDT 08/17/2024 12:19 PM CDT Lucero Murphy MD URINE Final Result [facility] [address] [place], [place] [id number] [facility] [address] [place] [address] * (ABNORMAL) URINE CULTURE [76818.2] (08/17/2024 10:18 AM CDT) CULTURE RESULT(A) 08/19/2024 6:49 AM CDT [facility] CULTURE >100,000 CFU/mL Escherichia coli 08/19/2024 6:49 AM CDT [facility] CULTURE >100,000 CFU/mL Streptococcus agalactiae (Strep Group B) 08/19/2024 6:49 AM CDT [facility] Urine URINE SPECIMEN / Unknown Non-Blood / Unknown 08/17/2024 10:18 AM CDT 08/17/2024 10:18 AM CDT Narrative Organism Antibiotic Method Susceptibility Escherichia coli TRIMETHOPRIM/SULF <=04/08: S Escherichia coli AMPICILLIN <=2: S Escherichia coli CEFAZOLIN 2: S Escherichia coli CEFAZOLIN-UC 2: S Comment:Cefazolin-UC interpretations are for therapy of uncomplicated UTIs due to E.coli, K.pneumoniae, or P.mirablis. Cefazolin breakpoint is used as a surrogate to predict results for the oral agents - cefdinir, cefuroxime, and cephalexin, when used for therapy of uncomplicated UTIs due to E coli, K, pneumoniae, and P. mirabilis. The FDA recommends cefadroxil susceptibility can be deduced from cefazolin. Escherichia coli GENTAMICIN <=1: S Escherichia coli CEFTRIAXONE <=0.25: S Escherichia coli CEFTAZIDIME <=0.5: S Escherichia coli LEVOFLOXACIN <=0.12: S Escherichia coli CIPROFLOXACIN <=0.06: S Escherichia coli PIPERACILLIN/TAZO <=4: S Escherichia coli AMPICILLIN/SULBACTAM <=2: S Escherichia coli CEFEPIME <=0.12: S Escherichia coli MEROPENEM <=0.25: S Escherichia coli NITROFURANTOIN <=16: S Lucero Murphy MD MICROBIOLOGY Final Result Performing Organization Address City/State/[facility] Co de Phone Number [facility] [address] [place] [id number], [place] * (ABNORMAL) TRICHOMONAS, DEANGELO, AND BACTERIAL VAGINOSIS BY MARTIN (07/27/2024 3:05 PM CDT) DEANGELO SPECIES Negative Negative 3:30 PM CDT [facility] DEANGELO GLABRATA Negative Negative 07/30/2024 3:30 PM CDT [facility] TRICHOMONAS VVA Negative Negative 3:30 PM CDT [facility] BACTERIAL VAGINOSIS Positive(A) Negative 07/30/2024 3:30 PM CDT [facility] Other VAGINAL SWAB / Unknown Non-Blood / Unknown 07/27/2024 3:05 PM CDT 07/27/2024 3:05 PM CDT us Lucero Murphy MD MICROBIOLOGY Final Result Performing Organization Address [facility] Co de Phone Number [facility] [address] [place] [address], [place] * PATH TISSUE EXAM (07/27/2024 2:15 PM CDT) Case Report Pathology Report Case: [id number] Authorizing Provider: Lucero Murphy, Collected: 07/27/2024 1415 Ordering Location: [facility] Received: 07/27/2024 1544 Clinic Pathologist: Eddy Costa MD Specimen: Vaginal Biopsy 07/31/2024 4:48 PM CDT [facility] Final Diagnosis A) VAGINA, BIOPSY: 1. Granulation tissue 2. Negative for squamous intraepithelial lesion and invasive carcinoma 07/31/2024 4:48 PM CDT [facility] at 1648 CDT Clinical Information 84-year-old woman with vaginal bleeding and discharge, suspected due to bacterial vaginosis or irritation from pessary for pelvic organ prolapse. 07/31/2024 4:48 PM CDT [facility] Gross Description A) Received in formalin, labeled with the patient's name and A, is a 1.0 x 0.6 x 0.2 cm portion of purple-olmedo to olmedo-white soft, slightly friable tissue. No masses or lesions are identified. The apparent resection margin is inked blue and trisected. The specimen is entirely submitted in 1 cassette. EVM 07/30/2024 07/31/2024 4:48 PM CDT [facility] Microscopic Description The final diagnosis is based on microscopic examination of appropriate sections of all specimens. 07/31/2024 4:48 PM CDT [facility] Additional Information Interpreted at [facility] Central Laboratory - [address] [facility] [address] [id number] 07/31/2024 4:48 PM CDT [facility] Other (Vaginal Biopsy) Non-Blood / Unknown 07/27/2024 2:15 PM CDT 07/27/2024 3:44 PM CDT Comment:Bleeding vaginal muc osal tissue due to pessary. Granulation tissue?? us Lucero Murphy MD PATHOLOGY/CYTOLOGY nal Result [facility] [address] [place] [address], * (ABNORMAL) XR DXA BONE DENSITY 2 SITES AXIAL (08/09/2023 8:51 AM CDT) Anatomical Region Laterality Modality Spine, HIPS, HIPL, HIPR Other Impressions 08/11/2023 9:03 AM CDT Osteoporosis. Due to the stability of the bone density, continue present medication if indicated. RECOMMENDATIONS: The National Osteoporosis Foundation recommends pharmacologic treatment for patients with T-scores of -2.5 or less, patients with prior history of fragility fractures, or patients with 10-year probability of greater than 3% at hips or greater than 20% of suffering major osteoporotic fractures. Recommend continued optimization of calcium and vitamin D intake through dietary means and/or supplementation and regular exercise. Continue current Denosumab (Prolia) medication treatment. Follow up in 2 years for recheck of bone density. Rama Lou PA-C [facility] 08/11/2023 Narrative 08/11/2023 9:03 AM CDT For Patients: Results are automatically released to your [facility] account once available, in compliance with federal regulations. This means that you may see your results before your provider has had a chance to review them. Please allow 2-3 business days for your provider to comment on the results. XR DXA Bone Mineral Density (BMD) EXAM LOCATION: [facility] [address] [facility] [address] PATIENT NAME: Jacqueline Jenkins DATE OF : 1940 EXAM DATE: 08/09/2023 REQUESTING PROVIDER: Lucero Murphy MD GENDER AT : female HEIGHT: 4' 10.25 (07/01/2023) WEIGHT: 143 lb 4.8 oz (07/15/2023) MENOPAUSAL STATUS: Postmenopausal RACE/ETHNICITY: White RISK FACTORS: Family History of Osteoporosis, Height Loss (2 inches or more), and White Race CURRENT MEDICATION FOR BONE LOSS: Denosumab (Prolia) INDICATION: Follow-up of existing osteoporosis COMPARISON DATE(S): 2021 DXA scans are compared to prior studies for a patient only when the two (or more) studies were performed on the same scanner. It is not possible to compare data generated on one scanner to data from another because there are not standards in DXA equipment. This applies even if the two scanners are made by the same tube handler. PROCEDURE: Dual-energy x-ray absorptiometry performed with routine technique. Reporting is completed in the form of a T-score. The T-score represents the standard deviation from peak bone mass based on young healthy adult. A Z-score is used for diagnosis in premenopausal women, and for men under the age of 50. FINDINGS: RESULT LUMBAR SPINE L1 - L4 BMD: 0.902 g/cm2 T-Score: - 2.3 Z-Score: - 0.4 Change from prior in 2021: Increase 3.2%. RESULTS FEMUR Left femoral neck BMD: 0.719 g/cm2 T-Score: - 2.3 Z-Score: + 0.0 Change from prior in 2021: Increase 5.7%. Right femoral neck BMD: 0.652 g/cm2 T-Score: - 2.8 Z-Score: - 0.4 Change from prior in 2021: Increase 5.3%. Left hip BMD: 0.783 g/cm2 T-Score: - 1.8 Z-Score: + 0.4 Change from prior in 2021: Increase 3.6%. Right hip BMD: 0.758 g/cm2 T-Score: - 2.0 Z-Score: + 0.2 Change from prior in 2021: Increase 8.0%. 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
--- NOTE | 2024-10-11 15:14 | CRLHL7_ITS ---
For Patients: As a result of the Century Cures Act, medical imaging exams and procedure reports are released immediately into your electronic medical record. You may view this report before your referring provider. If you have questions, please contact your health care provider. DATE: 10/11/2024 CLINICAL HISTORY: Patient with focal neurological deficits. TECHNIQUE: Standard helical CT image acquisition through the intracranial circulation following intravenous administration of contrast material with bolus tracking. 2D and 3D MIP images for post-processing were performed and interpreted on an independent workstation and 3D images were permanently archived. COMPARISON: CT same day. FINDINGS: There is no cerebral aneurysm or large vessel occlusion. There is mild intracranial atherosclerosis in the carotid siphons bilaterally. The right middle cerebral artery and its branches are normal. The right anterior cerebral artery and its branches are normal. The left middle cerebral artery and its branches are normal. The left anterior cerebral artery and its branches are normal. The anterior communicating artery is well visualized and appears normal. The right vertebral artery and PICA are normal. The left vertebral artery and PICA are normal. The left vertebral artery is dominant. The basilar artery is patent and appears normal. The right posterior cerebral artery is normal. The left posterior cerebral artery is normal. IMPRESSION: 1. No cerebral aneurysm or large vessel occlusion. 2. Mild intracranial atherosclerosis in the carotid siphons bilaterally. Please note that all CT scans at this facility use dose modulation, iterative reconstruction, and/or weight-based dosing when appropriate to reduce radiation dose to as low as reasonably achievable. Dictated by Pan Newman MD @ 10/11/2024 6:04:19 PM (Electronically Signed)
--- NOTE | 2024-10-11 15:14 | CRLHL7_ITS ---
For Patients: As a result of the Century Cures Act, medical imaging exams and procedure reports are released immediately into your electronic medical record. You may view this report before your referring provider. If you have questions, please contact your health care provider. DATE: 10/11/2024 CLINICAL HISTORY: Patient with focal neurological deficits. TECHNIQUE: Standard helical CT image acquisition of the neck up to the skull base after bolus intravenous contrast enhancement. 2D and 3D MIP images for post-processing were performed and interpreted on an independent workstation and 3D images were permanently archived. COMPARISON: CT same day. FINDINGS: The origins of the great vessels from the aortic arch are patent. The origin of the right vertebral artery is patent. The origin of the left vertebral artery is patent. The common carotid arteries are patent. There is plaque without stenosis at the origin of the right internal carotid artery by NASCET criteria. There is a mild (less than 50%) stenosis at the origin of the left internal carotid artery by NASCET criteria. This is caused by calcified plaque with a greater than 2mm residual lumen. The rest of the cervical segments of the internal carotid arteries are patent up to the skull base. The left vertebral artery is dominant. The cervical segments of the vertebral arteries are patent up to the skull base. The visualized lung apices are unremarkable. The thyroid gland is unremarkable. The soft tissues of the neck are unremarkable. There are degenerative changes in the cervical spine. IMPRESSION: Mild (less than 50%) stenosis at the origin of the left internal carotid artery by NASCET criteria. This is caused by calcified plaque with a greater than 2mm residual lumen. Please note that all CT scans at this facility use dose modulation, iterative reconstruction, and/or weight-based dosing when appropriate to reduce radiation dose to as low as reasonably achievable. Dictated by Pan Newman MD @ 10/11/2024 6:02:35 PM (Electronically Signed)
--- NOTE | 2024-10-11 15:14 | CRLHL7_ITS ---
For Patients: As a result of the Century Cures Act, medical imaging exams and procedure reports are released immediately into your electronic medical record. You may view this report before your referring provider. If you have questions, please contact your health care provider. INDICATION: SPEECH PROBLEMS, HX 2 MENINGIOMAS TECHNIQUE: CT of the head without contrast. Coronal and sagittal reformats. Bone and soft tissue algorithms. COMPARISON: No prior studies available for comparison at this institution. FINDINGS: No acute intracranial hemorrhage or extra-axial collection. No evidence of acute cortical infarction. There is a 1.8 cm presumed meningioma along the right anterior falx with mild mass effect on the underlying parenchyma without parenchymal edema (series 3, image 31). Questionable 2 millimeter calcified meningioma along the left falx without significant mass effect on underlying parenchyma. No mass effect or midline shift. Moderate generalized parenchymal volume loss. Moderate regions of decreased attenuation within the periventricular and subcortical white matter of both cerebral hemispheres most likely reflect chronic microvascular ischemic disease and age related change in this patient. Vascular calcifications within the carotid siphons and vertebral arteries. Incidental prakash cisterna magna. Orbital contents are normal. No calvarial fractures. No lytic or sclerotic osseous lesions within the calvarium or skull base. Scalp and other imaged soft tissue structures are normal. Mastoid air cells are clear. Atelectasis of the right maxillary sinus with osteoneogenesis compatible with history of chronic sinusitis. Complete opacification of right frontal sinus. Leftward deviation of the nasal septum with septal spur. IMPRESSION: 1. No acute intracranial abnormality. 2. A 1.8 cm presumed meningioma along the right anterior falx with mild mass effect on the underlying parenchyma without parenchymal edema. Questionable 2 mm calcified meningioma along the left falx without significant mass effect on underlying parenchyma. Please note that all CT scans at this facility use dose modulation, iterative reconstruction, and/or weight-based dosing when appropriate to reduce radiation dose to as low as reasonably achievable. Dictated by Arpit Robbins MD @ 10/11/2024 4:59:22 PM (Electronically Signed)
--- NOTE | 2024-10-11 15:17 | ED_ITS ---
HPI - General Adult General Date Seen: 10/11/24 Chief complaint: Neuro Symptoms/Altered Deficit Stated complaint: [facility] sent to rule out stroke Time Seen by Provider: 10/11/24 14:59 History of Present Illness HPI narrative: Patient is an 84-year-old woman here with her daughter for evaluation of speech problems. 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 Patient noted during that period of time that she got generally fatigued although there is no report of focal weakness or other neurologic changes. They checked out from [employer] at about 205 and got back in the car. Her daughter says that when they got in the car she noticed that mom was not making sense. She says that she was speaking but the words did not make sense. She thought at 1st that maybe she do es needed something to eat so they got into the drive-through [employer], but her mom was not able to communicate basic things like what she wanted to eat. Daughter does not remember exactly what was coming out of her mouth but says it had nothing to do food or ordering at [employer]. Patient remembers this, feels like she was having difficulty expressing herself. Daughter did not notice a facial droop, patient denies noticing any weakness or numbness, no loss of coordination. They were right next to the [facility] so they went there 1st, patient was able to walk into the clinic independently. They were advised to come to the ER from there. Overall, daughter thinks the speech deficit lasted about 20 minutes and they both feel that she is generally back to normal although she still feels fatigued. She is generally pretty healthy, does have 2 meningiomas that are being followed since last year, she is scheduled to have an MRI actually next week for that. She denies any headache, nausea or vomiting. She has not previously had neurologic deficits related to those. She does not smoke. Related Data Home Medications ?Medication ?Instructions ?Recorded ?Confirmed lorazepam 0.5 mg tablet 0.25 - 0.5 mg PO 08/04/23 metoprolol succinate 50 mg 50 mg PO DAILY 08/04/23 tablet,extended release 24 hr oxyquinoline 0.025 %-sodium lauryl 0.5 ea vaginal 2XW 08/04/23 10/11/24 sulfate 0.01 % vaginal gel (Trimo-Zamudio Jelly) rosuvastatin 20 mg tablet 20 mg PO QPM 08/04/23 warfarin 7.5 mg tablet mg PO 08/04/23 08/04/23 Allergies Allergy/AdvReac Type Severity Reaction Status Date / Time No Known Drug Allergies Allergy Verified 10/11/24 16:27 Review of Systems Status of ROS: Reports: 10 or more systems reviewed and unremarkable except as noted in History and below PFSH PENDING SALE TO [facility] Social History Smoking Status: Never smoker Do you use any of these nicotine containing products: None How often do you have a drink containing alcohol: never How often do you have six or more drinks on one occasion: Never AUDIT-C Alcohol total score: 0 Non-prescribed substance use: denies use service: No Exam Narrative: Exam Narrative: Vital signs reviewed In general, alert, nontoxic elderly woman. Head: Normocephalic, atraumatic. Eyes: Sclera clear. Pupils equal and reactive. ENT: Mucous membranes moist. Neck: Supple without adenopathy. Heart: Regular rate and rhythm without murmur. Lungs: Clear. No increased work of breathing, crackles or wheezes. Abdomen: Soft, nontender to palpation. Extremities: Well perfused, pulses intact. No significant edema. Neurologic: Alert, conversant. Speech fluent, face symmetric. Moves all ex tremities equally. Skin: Warm, dry well perfused. Affect: Normal. Const: Vital Signs, click to edit/add: Vital Signs - 24 hr 10/11/24 14:57 10/11/24 15:36 10/11/24 15:45 Temperature 98.5 F Pulse Rate 73 Pulse Rate [Right Pulse Oximeter] 93 Respiratory Rate 17 21 Blood Pressure Blood Pressure [Ri ght Upper Arm] 143/91 H Pulse Oximetry 93 94 93 Oxygen Delivery Me thod Room Air 10/11/24 15:52 10/11/24 15:53 10/11/24 16:00 Temperature Pulse Rate 74 77 73 Pulse Rate [Right Pulse Oximeter] Respiratory Rate 26 H 16 21 Blood Pressure 126/73 Blood Pressure [Ri ght Upper Arm] Pulse Oximetry 92 95 93 Oxygen Delivery Me thod 10/11/24 16:02 10/11/24 16:15 10/11/24 17:22 Temperature Pulse Rate 74 70 76 Pulse Rate [Right Pulse Oximeter] Respiratory Rate 25 H 17 Blood Pressure 136/77 Blood Pressure [Ri ght Upper Arm] Pulse Oximetry 93 93 92 Oxygen Delivery Me thod 10/11/24 17:30 10/11/24 17:31 10/11/24 17:45 Temperature Pulse Rate 74 76 73 Pulse Rate [Right Pulse Oximeter] Respiratory Rate 17 18 18 Blood Pressure 144/80 H Blood Pressure [Ri ght Upper Arm] Pulse Oximetry 93 93 93 Oxygen Delivery Me thod 10/11/24 18:00 10/11/24 18:01 Temperature Pulse Rate 74 75 Pulse Rate [Right Pulse Oximeter] Respiratory Rate 10 L 17 Blood Pressure 153/97 H Blood Pressure [Ri ght Upper Arm] Pulse Oximetry 94 93 Oxygen Delivery Me thod Course Course ED Course: Patient presents with a self-limited episode of nonsensical speech, resolved at this time. Nonetheless, will get Neurology involved, CT CT angiogram is ord ered, labs. I spoke with Neurology. They feel this is likely TIA, seizure unlikely related to these small meningiomas that she has known half. He recommended CT CT angiogram and also an MRI with and without contrast, this will take care of the MRI that she was scheduled to have next week as well. He also recommended admission to the hospital with follow-up echocardiogram. She does have a hist ory of mural thrombus which is the reason for her anticoagulation. She had an echo most recently through [facility] in April of this year which did not show any evidence of thrombus. He felt that if her repeat echo showed recurrent thrombus that we would want to consider increasing her INR goal from 2-3 to 2 and half to 3 and half. She remains asymptomatic here. I did an EKG and this shows a sinus rhythm, ventricular rate of 77. No acute ST segment changes. Overall small voltages. Labs are all reviewed and notable primarily for the fact that her INR is a little subtherapeutic today at 1.6. Labs otherwise are quite unremarkable. I reviewed her head CT, presumable meningioma in the right frontal region and no other findings suggestive of hemorrhage or mass effect. I reviewed reports on the CT of the head and CT angiogram of the head and neck. No acute findings requiring intervention. She went on to have an MRI of the brain. Radiology read this as showing chronic but small vessel changes, she has a 1.9 cm meningioma along the right anterior falx which is stable with similar mass effect on the right frontal lobe. She has a smaller 3 mm meningioma along the left anterior falx without mass effect. There is no associated parenchymal edema on either side. I reviewed all of this with the patient and her family. She is agreeable with admission. Discussed with hospitalist and admitted to their service. Vital Signs Vital signs: Initial Vital Signs Temperature 98.5 F 10/11/24 14:57 Temperature Source Temporal Artery Scan 10/11/24 14:57 Pulse Rate 93 10/11/24 14:57 Pulse Rhythm Regular 10/11/24 14:57 Pulse Strength 3+ Normal 10/11/24 14:57 Respiratory Rate 17 10/11/24 14:57 Blood Pressure 143/91 H 10/11/24 14:57 Blood Pressure Mean 108 H 10/11/24 14:57 Blood Pressure Position Sitting 10/11/24 14:57 Pulse Oximetry 93 10/11/24 14:57 Oxygen Delivery Method Room Air 10/11/24 14:57 Vital Signs Temperature 98.5 F 10/11/24 14:57 Pulse Rate 93 10/11/24 14:57 Respiratory Rate 17 10/11/24 14:57 Blood Pressure 143/91 H 10/11/24 14:57 Pulse Oximetry 93 10/11/24 14:57 Oxygen Delivery Method Room Air 10/11/24 14:57 Temperature 98.5 F 10/11/24 14:57 Pulse Rate 75 10/11/24 18:01 Respiratory Rate 17 10/11/24 18:01 Blood Pressure 153/97 H 10/11/24 18:01 Pulse Oximetry 93 10/11/24 18:01 Oxygen Delivery Method Room Air 10/11/24 14:57 Medical Decision Making Lab Data Labs: Lab Results 10/11/24 Range/Units 15:21 WBC 5.91 (4.50-11.00) K/uL RBC 4.59 (4.00-5.20) m/uL Hgb 13.7 (12.0-16.0) gm/dL Hct 42.4 (33.0-51.0) % MCV 92 (80-100) fL MCH 30 (26-34) pg MCHC 32 (32-36) gm/dL RDW Coeff of Werner 13.5 (11.5-15.5) % Plt Count 153 (140-440) K/uL Neut % (Auto) 62.4 (42.0-72.0) % Lymph % (Auto) 26.7 (20-44) % Murray % (Auto) 9.5 (0.0-11.0) % Eos % (Auto) 1.0 (0.0-7.0) % Baso % (Auto) 0.2 (0.0-3.0) % Neut # (Auto) 3.69 (1.7-7.0) K/uL Lymph # (Auto) 1.58 (0.90-2.90) K/uL Murray # (Auto) 0.60 (0.00-0.90) K/UL Eos # (Auto) 0.06 (0.00-0.50) K/uL Baso # (Auto) 0.01 (0.00-0.30) K/uL Abs Immat Gran (auto) 0.01 (0.00-0.30) K/uL Imm/Tot Granulo (auto) 0.2 % INR 1.59 H (0.91-1.10) APTT 32 (23-33) Seconds Sodium 139 (135-149) mmol/L Potassium 4.0 (3.6-5.1) mmol/L Chloride 106 (96-114) mmol/L Carbon Dioxide 28 (20-32) mmol/L Anion Gap 5 L (7-15) mEq/L BUN 15 (7-30) mg/dL Creatinine 0.7 (0.5-1.5) mg/dL Estimated Creat Clear 38.88 Estimated GFR 85 ml/min Glucose 100 (60-115) mg/dL Calcium 9.5 (8.4-10.6) mg/dL Magnesium 1.9 (1.5-2.6) mg/dL Total Bilirubin 1.7 H (0.1-1.5) mg/dL Direct Bilirubin 0.0 (0.0-0.5) mg/dL AST 26 (12-35) U/L ALT 18 (4-35) U/L Alkaline Phosphatase 58 (40-150) U/L Total Protein 6.9 (6.0-8.3) g/dL Albumin 4.3 (3.3-5.0) g/dL Imaging Data CT/CTA head and neck: Attestation: I have reviewed the pertinent imaging results. Radiologist's impression: Patient: JACQUELINE CASTLE Facility: [facility] Site . Site : 1940 Study: CT-Head Angio W/ 95CC ISOVUE 370-10/11/2024 4:37:20 PM Ordering Physician: Martha Perez Preliminary Report: 1. No evidence of proximal artery occlusion, high grade stenosis, aneurysm, dissection, or vascular malformation. 2. Meningioma along the right anterior frontal lobe (sse 8 im 62) poorly visualized due to lack of appreciable enhancement. 3. Mild less than 50 percent left ICA origin stenosis due to plaque. Left vertebral artery is dominant. origin of the right posterior cerebral artery. 4. Secretions in the right trachea. Final report per neurointerventional radiology service. Read by: Arpit Robbins MD @10/11/2024 5:04:45 PM Patient: Jacqueline Castle MR#: [id number] : 1940 Acct:[id number] Loc: ED Service Date: 10/11/[address]: Ordering Physician: Ana Thomas M.D. Date of Service: 10/11/24 Procedure(s): CT head/brain wo con Accession Number(s): [id number] cc: Ana Thomas M.D.; Lucero Murphy M.D.~ For Patients: As a result of the Century Cures Act, medical imaging exams and procedure reports are released immediately into your electronic medical record. You may view this report before your referring provider. If you have questions, please contact your health care provider. INDICATION: SPEECH PROBLEMS, HX 2 MENINGIOMAS TECHNIQUE: CT of the head without contrast. Coronal and sagittal reformats. Bone and soft tissue algorithms. COMPARISON: No prior studies available for comparison at this institution. FINDINGS: No acute intracranial hemorrhage or extra-axial collection. No evidence of acute cortical infarction. There is a 1.8 cm presumed meningioma along the right anterior falx with mild mass effect on the underlying parenchyma without parenchymal edema (series 3, image 31). Questionable 2 millimeter calcified meningioma along the left falx without significant mass effect on underlying parenchyma. No mass effect or midline shift. Moderate generalized parenchymal volume loss. Moderate regions of decreased attenuation within the periventricular and subcortical white matter of both cerebral hemispheres most likely reflect chronic microvascular ischemic disease and age related change in this patient. Vascular calcifications within the carotid siphons and vertebral arteries. Incidental prakash cisterna magna. Orbital contents are normal. No calvarial fractures. No lytic or sclerotic osseous lesions within the calvarium or skull base. Scalp and other imaged soft tissue structures are normal. Mastoid air cells are clear. Atelectasis of the right maxillary sinus with osteoneogenesis compatible with history of chronic sinusitis. Complete opacification of right frontal sinus. Leftward deviation of the nasal septum with septal spur. IMPRESSION: 1. No acute intracranial abnormality. 2. A 1.8 cm presumed meningioma along the right anterior falx with mild mass effect on the underlying parenchyma without parenchymal edema. Questionable 2 mm calcified meningioma along the left falx without significant mass effect on underlying parenchyma. Please note that all CT scans at this facility use dose modulation, iterative reconstruction, and/or weight-based dosing when appropriate to reduce radiation dose to as low as reasonably achievable. Dictated by Arpit Robbins MD @ 10/11/2024 4:59:22 PM Discharge Plan Discharge Clinical Impression: Transient cerebral ischemia Patient Disposition: Admitted As Observation Condition: Improved
[2024-10-11 15:41] LABS: Hematocrit 42.4 % (33.0-51.0); Hemoglobin* 13.7 gm/dL (12.0-16.0); Immature Granulocytes Abs Auto 0.01 K/uL (0.00-0.30); Immature Granulocytes Pct Auto 0.2 %; Lymphocytes Absolute Auto 1.58 K/uL (0.90-2.90); Mean Corpuscular HGB Conc 32 gm/dL (32-36); Mean Corpuscular Hemoglobin 30 pg (26-34); Mean Corpuscular Volume 92 fL (80-100); RDW Coefficient of Variation % 13.5 % (11.5-15.5); Red Blood Count 4.59 m/uL (4.00-5.20); White Blood Count* 5.91 K/uL (4.50-11.00)
[2024-10-11 15:50] LABS: Slide Review Reflex No
[2024-10-11 15:57] LABS: Albumin* 4.3 g/dL (3.3-5.0); Chloride* 106 mmol/L (96-114); Potassium* 4.0 mmol/L (3.6-5.1); Sodium* 139 mmol/L (135-149)
[2024-10-11 15:58] LABS: INR 1.59 (0.91-1.10); Prothrombin Time 19.9 Seconds
[2024-10-11 15:59] LABS: Blood Urea Nitrogen* 15 mg/dL (7-30); Creatinine* 0.7 mg/dL (0.5-1.5)
[2024-10-11 16:00] LABS: Alanine Aminotransferase* 18 U/L (4-35); Alkaline Phosphatase* 58 U/L (40-150); Anion Gap 5 mEq/L (7-15); Aspartate Amino Transferase* 26 U/L (12-35); Bilirubin Direct* 0.0 mg/dL (0.0-0.5); Bilirubin Total* 1.7 mg/dL (0.1-1.5); Calcium* 9.5 mg/dL (8.4-10.6); Carbon Dioxide* 28 mmol/L (20-32); Est. Creatinine Clearance* 38.88; Estimated Glomerular Filt Rate 85 ml/min; Glucose* 100 mg/dL (60-115); Total Protein* 6.9 g/dL (6.0-8.3)
--- NOTE | 2024-10-11 16:08 | CRLHL7_ITS ---
For Patients: As a result of the Century Cures Act, medical imaging exams and procedure reports are released immediately into your electronic medical record. You may view this report before your referring provider. If you have questions, please contact your health care provider. Indication: Word salad. Also follow-up meningiomas. Technique: Noncontrast sagittal T1, axial FLAIR, T2 turbo spine echo, and diffusion weighted images. Supplemental post contrast T1 weighted axial and coronal sequences are provided after administration of 15 ml Dotarem gadolinium-based IV contrast. Comparison: CT 10/11/2024. Findings: There is no evidence of diffusion restriction to suggest acute ischemia. Expected intracranial vascular flow voids are preserved. Moderate generalized parenchymal volume loss. Multiple scattered foci of T2 prolongation in the supratentorial subcortical and periventricular white matter compatible with chronic small-vessel ischemic changes. There is a 3 mm T2 hyperintense extra-axial dural-based lesion along the left anterior falx compatible with meningioma that demonstrates enhancement. No significant mass effect on the underlying parenchyma. There is a 1.7 by 1.9 cm T2 hyperintense lesion along the right anterior falx that demonstrates enhancement and diffusion restriction compatible with meningioma. Stable mild mass effect on the underlying parenchyma without parenchymal edema. Punctate foci of susceptibility effect in the right frontal lobe, left frontal lobe and left temporal lobe that likely represent remote microhemorrhages. Calvarial bone marrow signal is within normal limits. The scalp and soft tissues are grossly normal. The scalp and soft tissues are grossly normal. Leftward deviation of the nasal septum with septal spur. Bilateral presumed cataract surgery changes. Impression: 1. No acute intracranial abnormality. 2. Moderate parenchymal volume loss and chronic small vessel ischemic changes. 3. Stable 1.9 cm meningioma along the right anterior falx with similar mass effect on the right frontal lobe and smaller 3 mm meningioma along the left anterior falx without mass effect. No associated parenchymal edema. 4. Few punctate foci of susceptibility artifact compatible with remote microhemorrhages. Dictated by Arpit Robbins MD @ 10/11/2024 5:44:50 PM (Electronically Signed)
--- NOTE | 2024-10-11 18:49 | PM.IMHP1 ---
Assessment and Plan Assessment and plan (1) Transient cerebral ischemia: Problem comment: -transient altered speech for less than 1 hour that already resolved. -MRI negative for any acute intracranial pathology -ED physician contacted Neurology team and they recommended an echo for the patient to look for a recurrence of a mural thrombus, and if a thrombus is founf, the neurologist recommended increasing the target of her INR to 2.5-3.5. -will discuss with the neurologist the need for antiplatelet therapy once her workup is complete. Status: Acute (2) Meningioma: Problem comment: Chronic CT head did not show any acute intracranial abnormality it just showed 2 meningiomas without parenchymal edema or significant mass effect on underlying parenchyma. Status: Acute (3) Mural thrombus of heart: Problem comment: Status post RI in 1998 Status: Acute (4) Chronic anticoagulation: Problem comment: ED physician contacted Neurology team and they recommended an echo for the patient to look for a recurrence of a mural thrombus, and if a thrombus is founf, the neurologist recommended increasing the target of her INR to 2.5-3.5. Status: Acute (5) Subtherapeutic anticoagulation: Problem comment: Consulted pharmacy for warfarin management Status: Acute (6) Coronary artery disease: Problem comment: CAD s/p CABG 1998 & 3 stents around Patient's daughter stated that her automation and controls supervisor stopped aspirin because she had some vaginal bleeding secondary to pessary infection but her pessary was changed and she has a smaller one right now. Patient need to follow up with Cardiology and discuss the continued need overnight antiplatelet has a stented patient and her current TIA situation. Status: Acute (7) Hyperlipidemia: Problem comment: On a statin Status: Acute Total Time Spent Total Time Spent: Time spent: Today I spent 75 minutes seeing the patient, discussing the patient with ER staff, reviewing Expanse and EPIC notes/diagnostics, discussing the care plan with our care time that includes social work, PT/OT, pharmacy, RT, snf and documenting my impressions and plan in the medical record. Hospitalist- H&P: [facility] History of Present Illness Date Seen: 10/11/24 Chief complaint: [facility] sent to rule out stroke Narrative: Jacqueline Jenkins is a 84 year old female with past medical history of CAD s/p CABG 1998 & 3 stents around , Meningioma, hyperlipidemia, history of mural thrombus on warfarin s/p RI in 1998 who presents to the ED with altered speech that happened while she was shopping around 2:00 p.m. today but then symptoms resolved in 20-25 minutes. At the ED, patient was hemodynamically stable. unremarkable labs except for a subtherapeutic INR of 1.[address] head did not show any acute intracranial abnormality it just showed 2 meningiomas without parenchymal edema or significant mass effect on underlying parenchyma. CT angiogram of the head and neck showed No cerebral aneurysm or large vessel occlusion. Mild (less than 50%) stenosis at the origin of the left internal carotid artery by NASCET criteria. This is caused by calcified plaque with a greater than 2mm residual lumen. brain MRI showed No acute intracranial abnormality. ED physician contacted Neurology team and they recommended an echo for the patient to look for a recurrence of a mural thrombus, and if a thrombus is founf, the neurologist recommended increasing the target of her INR to 2.5-3.5. Review of Systems Status of ROS: Reports: 6 or more systems reviewed and unremarkable except as noted in History and below [facility] Medical History (Updated 10/11/24 @ 20:00 by Mariah Patton MD) Coronary artery disease ?I25.10 - Atherosclerotic heart disease of [place] coronary artery without angina pectoris (ICD-10) Chronic anticoagulation ?Z79.01 - intermediate project manager (current) use of anticoagulants (ICD-10) Mural thrombus of heart ?I51.3 - Intracardiac thrombosis, not elsewhere classified (ICD-10) Hyperlipidemia ?E78.5 - Hyperlipidemia, unspecified (ICD-10) Meningioma ?D32.9 - Benign neoplasm of meninges, unspecified (ICD-10) Social History Smoking Status: Never smoker Do you use any of these nicotine containing products: None How often do you have a drink containing alcohol: never How often do you have six or more drinks on one occasion: Never AUDIT-C Alcohol total score: 0 Non-prescribed substance use: denies use service: No Meds Home Medications and Allergies Home Medications ?Medication ?Instructions ?Recorded ?Confirmed ?Type lorazepam 0.5 mg tablet 0.25 - 0.5 mg PO 08/04/23 08/04/23 History metoprolol succinate 50 mg 50 mg PO DAILY 08/04/23 10/11/24 History tablet,extended release 24 hr oxyquinoline 0.025 %-sodium lauryl 0.5 ea vaginal 2XW 08/04/23 10/11/24 History sulfate 0.01 % vaginal gel (Trimo-Zamudio Jelly) rosuvastatin 20 mg tablet 20 mg PO QPM 08/04/23 10/11/24 History warfarin 7.5 mg tablet mg PO 08/04/23 08/04/23 History Allergies Allergy/AdvReac Type Severity Reaction Status Date / Time No Known Drug Allergies Allergy Verified 10/11/24 16:27 Exam Narrative: Exam Narrative: Physical exam GENERAL: Comfortable, no acute distress. HEAD AND NECK: Atraumatic, normocephalic CARDIOVASCULAR: RRR. Normal S1, S2. No murmurs. RESPIRATORY: Clear to auscultation B/L. Good air entry B/L. No wheezes or rhonchi. NEUROLOGY: Alert, awake, oriented X 3. Normal speech. No facial asymmetry. No focal weakness and no drifting. PSYCH: Normal mood, normal affect. Const: Vital Signs, click to edit/add: Vital Signs - 24 hr 10/11/24 14:57 10/11/24 15:36 10/11/24 15:45 Temperature 98.5 F Pulse Rate 73 Pulse Rate [Right Pulse Oximeter] 93 Respiratory Rate 17 21 Blood Pressure Blood Pressure [Ri ght Upper Arm] 143/91 H Pulse Oximetry 93 94 93 Oxygen Delivery Me thod Room Air 10/11/24 15:52 10/11/24 15:53 10/11/24 16:00 Temperature Pulse Rate 74 77 73 Pulse Rate [Right Pulse Oximeter] Respiratory Rate 26 H 16 21 Blood Pressure 126/73 Blood Pressure [Ri ght Upper Arm] Pulse Oximetry 92 95 93 Oxygen Delivery Me thod 10/11/24 16:02 10/11/24 16:15 10/11/24 17:22 Temperature Pulse Rate 74 70 76 Pulse Rate [Right Pulse Oximeter] Respiratory Rate 25 H 17 Blood Pressure 136/77 Blood Pressure [Ri ght Upper Arm] Pulse Oximetry 93 93 92 Oxygen Delivery Me thod 10/11/24 17:30 10/11/24 17:31 10/11/24 17:45 Temperature Pulse Rate 74 76 73 Pulse Rate [Right Pulse Oximeter] Respiratory Rate 17 18 18 Blood Pressure 144/80 H Blood Pressure [Ri ght Upper Arm] Pulse Oximetry 93 93 93 Oxygen Delivery [facility] 10/11/24 18:00 10/11/24 18:01 10/11/24 18:14 Temperature 98 F Pulse Rate 74 75 Pulse Rate [Right Pulse Oximeter] Respiratory Rate 10 L 17 Blood Pressure 153/97 H Blood Pressure [Ri ght Upper Arm] Pulse Oximetry 94 93 Oxygen Delivery [facility] Hospitalist - H&P: Result Labs Labs: Short CBC 10/11/24 Range/Units 15:21 WBC 5.91 (4.50-11.00) K/uL Hgb 13.7 (12.0-16.0) gm/dL Hct 42.4 (33.0-51.0) % Plt Count 153 (140-440) K/uL BMP 10/11/24 15:21 Sodium 139 Potassium 4.0 Chloride 106 Carbon Dioxide 28 BUN 15 Creatinine 0.7 Glucose 100 Calcium 9.5 Liver Function 10/11/24 Range/Units 15:21 Total Bilirubin 1.7 H (0.1-1.5) mg/dL Direct Bilirubin 0.0 (0.0-0.5) mg/dL AST 26 (12-35) U/L ALT 18 (4-35) U/L Alkaline Phosphatase 58 (40-150) U/L Albumin 4.3 (3.3-5.0) g/dL
[2024-10-11] MEDS: METOPROLOL SUCCINATE (XL) 50 MG TAB PO (21:10)
[2024-10-11] MEDS: SODIUM CHLORIDE 0.9 % (FLUSH) 10 ML SYRINGE 5 ML IVF (21:10)
[2024-10-11] MEDS: ROSUVASTATIN CALCIUM 10 MG TABLET 20 MG PO (21:10)
[2024-10-11] MEDS: MIRTAZAPINE 15 MG TABLET 3.75 MG PO (21:15)
[2024-10-12 03:00] VITALS: RESP 16
--- NOTE | 2024-10-12 06:28 | PC.NURSE ---
23-: Pleasant and cooperative. Son at bedside. VS WNL. Echo scheduled 10/12.
[2024-10-12 06:53] LABS: Hematocrit 42.0 % (33.0-51.0); Hemoglobin* 13.5 gm/dL (12.0-16.0); Mean Corpuscular HGB Conc 32 gm/dL (32-36); Mean Corpuscular Hemoglobin 30 pg (26-34); Mean Corpuscular Volume 93 fL (80-100); Red Blood Count 4.52 m/uL (4.00-5.20); White Blood Count* 4.59 K/uL (4.50-11.00)
[2024-10-12 07:00] VITALS: BP 113/71; PULSE 69; PULSE 83; RESP 14; TEMP 36.8; O2SAT 95
[2024-10-12 07:00] LABS: Slide Review Reflex No
[2024-10-12 07:01] LABS: Chloride* 105 mmol/L (96-114); Potassium* 3.7 mmol/L (3.6-5.1); Sodium* 136 mmol/L (135-149)
[2024-10-12 07:04] LABS: Blood Urea Nitrogen* 14 mg/dL (7-30); Creatinine* 0.6 mg/dL (0.5-1.5); Est. Creatinine Clearance* 39.26; Estimated Glomerular Filt Rate 88 ml/min
[2024-10-12 07:05] LABS: Anion Gap 3 mEq/L (7-15); Calcium* 9.2 mg/dL (8.4-10.6); Carbon Dioxide* 28 mmol/L (20-32); Glucose* 89 mg/dL (60-115)
[2024-10-12 07:16] LABS: INR 1.68 (0.91-1.10); Prothrombin Time 20.8 Seconds
--- NOTE | 2024-10-12 08:55 | REH.OT ---
OT/PT consult orders received. Per Nsg, Pt is up w/ [facility] for ADLs w/ SBA only. approved d/c of OT/PT orders as symptoms have resolved.
--- NOTE | 2024-10-12 09:21 | REH.SLP ---
Speech order received, chart reviewed, case discussed with RN who reports no speech or swallowing issues. Briefly met with patient and her son who also have no concerns about speech or swallowing. Oral [facility] exam revealed a slight tongue deviation to the left, otherwise, unremarkable. Speech is 100% intelligible. Observed taking consecutive swallows via straw of water with no overt s/s of aspiration. Speech therapy not indicated. Will complete order.
[2024-10-12] MEDS: WARFARIN 2.5 MG TABLET 7.5 MG PO (10:10)
[2024-10-12] MEDS: SODIUM CHLORIDE 0.9 % (FLUSH) 10 ML SYRINGE 5 ML IVF (10:11)
[2024-10-12 11:00] VITALS: BP 109/75; PULSE 83; RESP 14; TEMP 36.1; O2SAT 92
[2024-10-12] MEDS: PERFLUTREN LIPID MICROSPHERES 2 ML VIAL IVP (12:11)
--- NOTE | 2024-10-12 14:00 | PM.DS1 ---
DS: Providers Provider Date Seen: 10/12/24 Date of admission: 10/11/24 18:23 Primary care physician: Lucero Murphy MD Admitting Clinician: Mariah Patton MD Consults: 10/11/24 19:00 Consult to Speech Therapy [CONS] Routine Comment: Reason(s) for Speech Consult:: Speech/Swallowing Eval Attending Physician on discharge: Joya Mendenhall MD [facility] Date of Discharge: 10/12/24 DS: Diagnosis Discharge Diagnosis (1) Transient cerebral ischemia: Status: Acute Problem details: -transient altered speech for less than 1 hour and resolved without intervention. -MRI negative for any acute intracranial pathology -ED physician discussed case with Neurology. -neurology, telehealth, evaluated the patient today. -echo reveals no previous or current thrombus -will DC aspirin -likely related to known cerebrovascular disease, subtherapeutic INR, heat/exhaustion/etc. -dual therapy with asp (for either the TIA or hx of CAD) and coumadin (hx of mural thrombus) was discussed and given remote and stable CAD hx (20years) we will not elect to continue. (2) Subtherapeutic anticoagulation: Status: Acute Problem details: Consulted pharmacy for warfarin management (3) Mural thrombus of heart: Status: Acute Problem details: Status post TN in 1998 (4) Chronic anticoagulation: Status: Acute Problem details: ED physician contacted Neurology team and they recommended an echo for the patient to look for a recurrence of a mural thrombus, and if a thrombus is founf, the neurologist recommended increasing the target of her INR to 2.5-3.5. (5) Coronary artery disease: Status: Acute Problem details: CAD s/p CABG 1998 & 3 stents around Patient's daughter stated that her lead tinner stopped aspirin because she had some vaginal bleeding secondary to pessary infection but her pessary was changed and she has a smaller one right now. Patient need to follow up with Cardiology as dual therapy is not being continued. (6) Hyperlipidemia: Status: Acute Problem details: On a statin (7) Meningioma: Status: Acute Problem details: Chronic CT head did not show any acute intracranial abnormality it just showed 2 meningiomas without parenchymal edema or significant mass effect on underlying parenchyma. DS: Summary Hospital Course Hospital Course: FINAL DIAGNOSIS/FOLLOW UP ISSUES: 1. Transient cerebral ischemia/TIA - workup negative. Chronic small-vessel ischemic changes noted. Remote microhemorrhages noted. Continue warfarin. Aspirin not recommended by neurologist. 2. History of mural thrombus after TN and CAD. Last stented in 2003. Dual therapy with aspirin and warfarin was discussed. Will hold this at this time given side effects she has had with excess bleeding vaginally and distant stable disease. Her echo was stable during this hospitalization with no noted mural thrombus. BRIEF HOSPITAL COURSE: Patient was admitted for overnight. Synopsis of acute inpatient issues are outlined above. Chronic medical conditions with notable findings outlined above. Her few minutes of jargonaphasia resolved without intervention. workup negative. Tele-Neuro assisted in workup. No new medication changes. INR goal is still 2-3 and she has recent subtherapeutic checks. Given this, extra warfarin, 2.5mg, was added to her usual 7.5mg and she will have a close f/u INR planned. DISCHARGE MEDICATIONS: See Reconciled list - SIGNIFICANT CHANGES: No changes. No aspirin. Specific instructions to the patient and follow-up are outlined below. REVIEW OF SYSTEMS No new chest pain or dyspnea Pain controlled No voiding difficulties Tolerating diet challenge PHYSICAL EXAM: CONSTITUTIONAL: Conversive, good historian. A/O. Knows setting and context. GENERAL: Well-developed and above ideal body weight, in no respiratory distress. VITAL SIGNS: see record. HEENT: Sclerae are anicteric. No petechiae. CARDIAC: rhythm is regular. There is no S3 or rub. No harsh murmurs. Extremities show trace edema with symmetrical pulses. PULM: good air entry with no wheeze. NEURO: Speech is fluent. A brief neurologic exam is negative. SKIN: No rashes, petechiae, concerning changes PSYCHIATRIC: Euthymic. DISPOSITION: home with DIL. Just moved to [facility] independent senior apartment. Time spent on discharge 37 minutes. Status at Discharge Functional status at discharge: uses cane/walker Overall status at discharge: patient is back to baseline Time Spent with Patient Time attestation: Total time spent providing and/or coordinating discharge services: Time spent: Greater than 30 minutes Exam Const: Vital Signs, click to edit/add: Vital Signs - 24 hr 10/11/24 14:57 10/11/24 15:36 10/11/24 15:45 Temperature 98.5 F Pulse Rate 73 Pulse Rate [Right Pulse Oximeter] 93 Respiratory Rate 17 21 Blood Pressure Blood Pressure [Ri ght Arm] Blood Pressure [Ri ght Upper Arm] 143/91 H Pulse Oximetry 93 94 93 Oxygen Delivery Me od Room Air 10/11/24 15:52 10/11/24 15:53 10/11/24 16:00 Temperature Pulse Rate 74 77 73 Pulse Rate [Right Pulse Oximeter] Respiratory Rate 26 H 16 21 Blood Pressure 126/73 Blood Pressure [Ri ght Arm] Blood Pressure [Ri ght Upper Arm] Pulse Oximetry 92 95 93 Oxygen Delivery Me thod 10/11/24 16:02 10/11/24 16:15 10/11/24 17:22 Temperature Pulse Rate 74 70 76 Pulse Rate [Right Pulse Oximeter] Respiratory Rate 25 H 17 Blood Pressure 136/77 Blood Pressure [Ri ght Arm] Blood Pressure [Ri ght Upper Arm] Pulse Oximetry 93 93 92 [facility] 17:30 10/11/24 17:31 10/11/24 17:45 Temperature Pulse Rate 74 76 73 Pulse Rate [Right Pulse Oximeter] Respiratory Rate 17 18 18 Blood Pressure 144/80 H Blood Pressure [Ri ght Arm] Blood Pressure [Ri ght Upper Arm] Pulse Oximetry 93 93 93 [facility] 10/11/24 18:00 10/11/24 18:01 10/11/24 18:14 Temperature 98 F Pulse Rate 74 75 Pulse Rate [Right Pulse Oximeter] Respiratory Rate 10 L 17 Blood Pressure 153/97 H Blood Pressure [Ri ght Arm] Blood Pressure [Ri ght Upper Arm] Pulse Oximetry 94 93 [facility] 10/11/24 19:30 10/11/24 20:04 10/11/24 20:06 Temperature 97.5 F L 97.5 F L Pulse Rate Pulse Rate [Right Pulse Oximeter] 86 86 Respiratory Rate 16 16 16 Blood Pressure Blood Pressure [Ri ght Arm] 120/75 120/75 Blood Pressure [Ri ght Upper Arm] Pulse Oximetry 96 94 94 [facility] Room Air Room Air 10/11/24 20:59 10/11/24 23:00 10/11/24 23:07 Temperature Pulse Rate 72 69 Pulse Rate [Right Pulse Oximeter] Respiratory Rate 16 Blood Pressure Blood Pressure [Ri ght Arm] Blood Pressure [Ri ght Upper Arm] Pulse Oximetry Oxygen Delivery Me thod 10/11/24 23:30 10/12/24 03:00 10/12/24 07:00 Temperature 97.5 F L Pulse Rate 69 Pulse Rate [Right Pulse Oximeter] 65 Respiratory Rate 16 16 Blood Pressure Blood Pressure [Ri ght Arm] 135/75 Blood Pressure [Ri ght Upper Arm] Pulse Oximetry 95 Oxygen Delivery Me thod Room Air 10/12/24 07:00 10/12/24 11:00 Temperature 98.3 F 97 F L Pulse Rate Pulse Rate [Right Pulse Oximeter] 83 83 Respiratory Rate 14 14 Blood Pressure Blood Pressure [Ri ght Arm] 113/71 109/75 Blood Pressure [Ri ght Upper Arm] Pulse Oximetry 95 92 Oxygen Delivery Me thod Room Air Room Air DS: Data Data Completed and Pending Labs on day of discharge: Labs from last 24 hours 10/12/24 10/11/24 06:10 15:21 WBC 4.59 5.91 RBC 4.52 4.59 Hgb 13.5 13.7 Hct 42.0 42.4 MCV 93 92 MCH 30 30 MCHC 32 32 RDW Coeff of Werner 13.5 Plt Count 144 153 Neut % (Auto) 62.4 Lymph % (Auto) 26.7 Edmunds % (Auto) 9.5 Eos % (Auto) 1.0 Baso % (Auto) 0.2 Neut # (Auto) 3.69 Lymph # (Auto) 1.58 Edmunds # (Auto) 0.60 Eos # (Auto) 0.06 Baso # (Auto) 0.01 Abs Immat Gran (auto) 0.01 Imm/Tot Granulo (auto) 0.2 INR 1.68 H 1.59 H APTT 32 Sodium 136 139 Potassium 3.7 4.0 Chloride 105 106 Carbon Dioxide 28 28 Anion Gap 3 L 5 L BUN 14 15 Creatinine 0.6 0.7 Estimated Creat Clear 39.26 38.88 Estimated GFR 88 85 Glucose 89 100 Calcium 9.2 9.5 Magnesium 1.9 Total Bilirubin 1.7 H Direct Bilirubin 0.0 AST 26 ALT 18 Alkaline Phosphatase 58 Total Protein 6.9 Albumin 4.3 Discharge Plan Discharge Disposition: Home, Self-Care Date of Admission: 10/11/24 18:23 Attending Provider on Discharge: Joya Mendenhall Primary Care Provider: Lucero Murphy Condition: Improved Anticipated Discharge Date/Time: 10/12/24 12:58 Discharge Medications: Continued rosuvastatin 20 mg tablet 20 mg PO QPM warfarin 7.5 mg tablet 3.75 - 7.5 mg PO DAILY Rx Instructions: 7.5MG SUN, TUE, FRI AND 3.75MG ALL OTHER DAYS metoprolol succinate 50 mg tablet extended release 24 hr 50 mg PO DAILY Trimo-Zamudio Jelly 0.025-0.01 % gel 0.5 ea vaginal 2XW lorazepam 0.5 mg tablet 0.25 - 0.5 mg PO DAILY PRN estradiol 0.01 % (0.1 mg/gram) cream 1 g vaginal 2XW mirtazapine 7.5 mg tablet 3.75 mg PO HS Discharge Orders: Discharge Order (Routine); Ordered 10/12/24 Ordered By: Joya Mendenhall Patient Education: Warfarin (By mouth), Transient Ischemic Attack (DC) Additional Instructions: 1. Goal INR is 2.0 - 3.0. continue your current dose and check INR on Tuesday10/15/24. 2. Stay active and as strong as possible. (Go to the exercise classes at [facility]!) Activity Level: Activity as Tolerated Discharge Diet: Regular Follow Up Appointments: [facility] [Other] [facility] [Other] - 10/15/24 1:30 pm Referral Note: [facility] for INR check on Tuesday Lucero Murphy MD [Primary Care Provider, Family Practice] - 10/30/24 2:40 pm Referral Note: 2 weeks Forms: [employer] Instructions
--- NOTE | 2024-10-12 14:13 | NUTR.NU ---
Nutrition visit initiated r/t therapeutic diet order. Patient Admit with TIA. Diagnosis history includes: CAD-CABG; 3 stints, hyperlipidemia. Height 4' 11, Weight 133.3 lbs, BMI 26.4. Diet order Heat Healthy. Intake at breakfast 75%. Nurse reported granddaughter requested visit while patient in bathroom. Granddaughter reported patient moved into [facility] 2 weeks ago. She lost her 6 months ago. Granddaughter is uncertain how well patient is consistently eating. Visit with patient reported usual weight of 133 to 135, stable. She reports having access to 3 meals a day since moving into [facility]. Patient also reports she has not been consistent with going to meals since moving in, due to shopping, getting settled and adjusting. She reports usual intake history of 2 meals a day and some snacks on chips or crackers between meals. She reports not adding salt to food, but does indulge in some salty snacks. She also reports liking salads and vegetables and fruit and enjoys eating them regularly. No additional intervention outside of discussion related to intake and diet quality with patient and granddaughter. Lives at [facility] all meals available to patient. Contact information provided. Encouraged patient and granddaughter to contact with questions prn.
[2024-10-12] MEDS: WARFARIN 2.5 MG TABLET PO (14:40)
--- NOTE | 2024-10-12 15:22 | PC.NURSE ---
[id number]: Pt. AOX4, forgetful , but understands repeated information when reinforced. VSS. Afebrile. Family bedside & supportive. AMB SBA w/ G & coating machine feeder socks. Makes needs known & cooperative. Tele-Neuro appt, RN & pt's son present in room for. Medication and stroke education provided. Echo done, RN gave contrast; see EMAR. Follow-up care appt provided. Pt. IV access and tele removed. Pt. wheeled out by RN to daughter in law at ED entrance.
== END 2024-10-12 15:15 | disposition home or self-care (01) ==
LOC: ED 18:11 → MEDSURG 18:23
PROVIDERS: Admitting Provider Student in an Organized Health Care Education/Training Program; Emergency Provider Emergency Medicine; PCP Family Medicine; Visit Provider Student in an Organized Health Care Education/Training Program
DX: G45.9 Transient cerebral ischemic attack, unspecified (principal); D32.9 Benign neoplasm of meninges, unspecified; I51.3 Intracardiac thrombosis, not elsewhere classified; Z79.01 Long term (current) use of anticoagulants; I25.10 Atherosclerotic heart disease of native coronary artery without angina pectoris; E78.5 Hyperlipidemia, unspecified
CPT/HCPCS: 36415; 70450; 70496; 70498; 70553; 80048; 80076; 83735; 85025; 85027; 85610; 85730; 87081; 93005; 93306; 94761; 96374; 99284; 99285; A9270; A9575; G0378; Q9957; Q9967